=== PATIENT | female | born 1965 ===

== ENCOUNTER 2018-04-08 10:46 | Outpatient (CLI) | payer OTHER | END 2018-04-08 10:53 | disposition home or self-care (01) | LOC: LAB 10:46 | DX: E03.8 Other specified hypothyroidism (principal); F41.3 Other mixed anxiety disorders; Z72.0 Tobacco use; F33.8 Other recurrent depressive disorders; D51.1 Vitamin B12 deficiency anemia due to selective vitamin B12 malabsorption with proteinuria; N60.92 Unspecified benign mammary dysplasia of left breast; D51.0 Vitamin B12 deficiency anemia due to intrinsic factor deficiency; E06.3 Autoimmune thyroiditis ==

== ENCOUNTER 2018-04-08 10:58 | Outpatient (CLI) | payer OTHER | END 2018-04-08 11:06 | disposition home or self-care (01) | LOC: MAMO-SONO 10:58 | DX: Z12.31 Encounter for screening mammogram for malignant neoplasm of breast (principal); Z87.898 Personal history of other specified conditions; N60.92 Unspecified benign mammary dysplasia of left breast; E03.8 Other specified hypothyroidism; Z72.0 Tobacco use; F41.3 Other mixed anxiety disorders; F33.8 Other recurrent depressive disorders; N63.10 Unspecified lump in the right breast, unspecified quadrant; N63.20 Unspecified lump in the left breast, unspecified quadrant ==

== ENCOUNTER → 2018-08-21 10:11 | Outpatient (CLI) | payer OTHER | END | disposition home or self-care (01) | LOC: LAB 10:11 | DX: N60.92 Unspecified benign mammary dysplasia of left breast (principal); E03.8 Other specified hypothyroidism; Z72.0 Tobacco use; F41.3 Other mixed anxiety disorders; F33.8 Other recurrent depressive disorders; D50.8 Other iron deficiency anemias; I10 Essential (primary) hypertension; R97.0 Elevated carcinoembryonic antigen [CEA]; R97.8 Other abnormal tumor markers ==

== ENCOUNTER → 2018-08-21 | Outpatient (CLI) | payer OTHER | END | disposition home or self-care (01) | LOC: MAMO-SONO 10:15 | DX: E03.8 Other specified hypothyroidism (principal); N60.92 Unspecified benign mammary dysplasia of left breast; Z72.0 Tobacco use; F41.3 Other mixed anxiety disorders; F33.8 Other recurrent depressive disorders ==

== ENCOUNTER 2019-09-03 09:33 | Outpatient (CLI) | payer OTHER | END 2019-09-03 09:44 | disposition home or self-care (01) | LOC: MAMO-SONO 09:33 | DX: Z12.31 Encounter for screening mammogram for malignant neoplasm of breast (principal); N64.59 Other signs and symptoms in breast; D53.8 Other specified nutritional anemias; E03.8 Other specified hypothyroidism; E78.49 Other hyperlipidemia; K59.00 Constipation, unspecified; N18.3 Chronic kidney disease, stage 3 (moderate); F41.8 Other specified anxiety disorders; F31.89 Other bipolar disorder; Z12.11 Encounter for screening for malignant neoplasm of colon; Z28.21 Immunization not carried out because of patient refusal ==